=== PATIENT | male | born 1960 | race Caucasian/White ===

== ENCOUNTER → 2019-12-26 | Outpatient (CLI) | payer OTHER ==
[2019-12-26 13:59] LABS: Partial Thromboplastin Time 25.9 sec (22.0-30.0); Prothrombin Time 10.1 sec (9.0-12.0)
== END | disposition home or self-care (01) ==
LOC: LABPAT 12:42
PROVIDERS: ATTEND Orthopaedic Surgery
DX: Z01.818 Encounter for other preprocedural examination (principal); Z01.812 Encounter for preprocedural laboratory examination; M17.12 Unilateral primary osteoarthritis, left knee
CPT/HCPCS: 36415; 85610; 85730; 87070

== ENCOUNTER → 2020-05-10 | Outpatient (CLI) | payer OTHER ==
[2020-05-10 11:00] LABS: Appearance,Urine Clear (Clear); Bilirubin,Urine Negative (Negative); Blood,Urine Negative (Negative); Color,Urine Yellow; Glucose,Urine (UA) Negative (Negative); HCT 41.7 % (39.0-53.0); HGB 13.8 gm/dL (13.0-17.5); Ketones,Urine Negative (Negative); Leukocyte Esterase,Urine Negative (Negative); MCH 29.5 pg (25.0-35.0); MCHC 33.1 g/dL (31.0-37.0); MCV 89.3 fL (80.0-100.0); Mean Platelet Volume 7.4; Nitrite,Urine Negative (Negative); Platelet Count 224 k/uL (150-450); Protein,Urine Negative (Negative); RBC 4.67 m/uL (4.30-5.90); RDW 13.2 % (11.5-15.5); Specific Gravity,Urine 1.014 (1.001-1.035); Urobilinogen,Urine <2.0 mg/dL (<2.0); WBC 5.5 k/uL (3.8-10.6)
[2020-05-10 11:04] LABS: Partial Thromboplastin Time 25.6 sec (22.0-30.0)
[2020-05-10 11:30] LABS: ALT 52 U/L (4-49); AST 35 U/L (17-59); African American GFR (CKD) >90 (>60 ml/min/1.73 sqM); Alkaline Phosphatase 64 U/L (38-126); Anion Gap 11 mmol/L; Blood Urea Nitrogen 15 mg/dL (9-20); Calcium 9.7 mg/dL (8.4-10.2); Carbon Dioxide 22 mmol/L (22-30); Chloride 105 mmol/L (98-107); Glucose 119 mg/dL (74-99); Non-African American GFR(CKD) >90 (>60 ml/min/1.73 sqM); Potassium 4.3 mmol/L (3.5-5.1); Sodium 138 mmol/L (137-145); Total Bilirubin 0.5 mg/dL (0.2-1.3); Total Protein 7.6 g/dL (6.3-8.2)
== END | disposition home or self-care (01) ==
LOC: LABPAT 10:34
PROVIDERS: ATTEND Orthopaedic Surgery
DX: Z01.818 Encounter for other preprocedural examination (principal); Z01.812 Encounter for preprocedural laboratory examination
CPT/HCPCS: 36415; 80053; 81003; 85027; 85610; 85730; 87070

== ENCOUNTER 2020-05-17 06:28 | Day surgery (SDC) | payer OTHER ==
[2020-05-13 10:46] VITALS: BMI 32.5
[~2020-05-17 06:28] MED LIST: ACETAMINOPHEN TAB 500 MG TAB PO ONE; GABAPENTIN 300 MG CAP PO ONE; HYDROmorphone 0.5 MG/0.5 ML SYRINGE IVP PRN; LIDOCAINE 1% (10MG/ML) FOR IV START INTRADERMA PRN; MELOXICAM 7.5 MG TAB PO ONE; ONDANSETRON 4 MG/2 ML VIAL IVP ONE; TRANEXAMIC ACID 1,000 MG in SODIUM CHLORIDE 0.9% 100 ML IVPB ONE
[2020-05-17] MEDS ORDERED: ACETAMINOPHEN TAB 500 MG TAB ONE (07:22)
[2020-05-17] MEDS ORDERED: ONDANSETRON 4 MG/2 ML VIAL ONE (07:22)
[2020-05-17] MEDS ORDERED: MIDAZOLAM 2 MG/2 ML VIAL IVP ONE (08:04)
[2020-05-17] MEDS ORDERED: fentaNYL (PF) 50 MCG/ML 2 ML AMP IVP ONE (08:06)
[2020-05-17] MEDS ORDERED: DEXAMETHASONE SOD PHOS (MDV) 100 MG/10 ML VIAL IVP ONE (08:19)
[2020-05-17] MEDS: LACTATED RINGERS 1,000 ML IV SCH (08:19)
[2020-05-17] MEDS ORDERED: diazePAM 5 MG TAB PO PRN (08:57)
[2020-05-17] MEDS ORDERED: HYDROmorphone 1 MG/ML 1 ML SYRINGE IVP PRN (08:57)
[2020-05-17] MEDS ORDERED: NA PHOS,M-B/NA PHOS,DI-BA 133 ML ENEMA RECTAL PRN (08:57)
[2020-05-17] MEDS ORDERED: hydrOXYzine pamoate 25 MG CAP PO PRN (08:57)
[2020-05-17] MEDS ORDERED: HYDROmorphone 0.5 MG/0.5 ML SYRINGE IVP PRN ×2 (08:57)
[2020-05-17] MEDS ORDERED: HYDROcodone/APAP 5-325MG 1 EACH TAB PO PRN (08:57)
[2020-05-17] MEDS ORDERED: bisacodyL 10 MG SUPP RECTAL PRN (08:57)
[2020-05-17] MEDS ORDERED: NALOXONE 0.4 MG/ML 1 ML VIAL IV PRN (08:57)
[2020-05-17] MEDS ORDERED: MAGNESIUM HYDROXIDE 2,400 MG/10 ML CUP PO PRN (08:57)
[2020-05-17] MEDS ORDERED: ONDANSETRON 4 MG/2 ML VIAL IVP PRN (08:57)
[2020-05-17] MEDS ORDERED: ROPIVACAINE 0.2%-NS ON-Q PUMP 1,090 MG, EMPTY PAIN BALL 1 EACH MISCELLANE PRN (09:02)
--- NOTE | 2020-05-17 09:03 | P.ANPRN ---
Procedure Note - Anesthesia - Nerve Block Performed Left Adductor Canal Infusion Time Out Performed: Yes Date of Procedure: 05/17/20 Procedure Start Time: 08:04 Procedure Stop Time: 08:18 Location of Patient: PreOp Indication: Acute Post-Operative Pain, Requested by Surgeon Sedation Type: Sedate with meaningful contact maintained Preparation: Sterile Prep, Sterile Dressing Position: Supine Catheter: Indwelling Needle Types: Pajunk Needle Gauge: 18 Ultrasound used to visualize needle placement: Yes Ultrasound used to observe medication spread: Yes Injectate: 0.5% Ropivacaine (see comment for volume) (20 ml + decadron 4 mg) Blood Aspirated: No Pain Paresthesia on Injection Noted: No Resistance on Injection: Normal Image Stored and Saved: Yes
[2020-05-17] MEDS ORDERED: MIDAZOLAM 2 MG/2 ML VIAL ONE (09:30)
[2020-05-17] MEDS ORDERED: SODIUM CHLORIDE 0.9% 100 ML BAG ONE (09:30)
[2020-05-17] MEDS ORDERED: fentaNYL (PF) 50 MCG/ML 2 ML AMP ONE (09:30)
[2020-05-17] MEDS ORDERED: PROPOFOL 10 MG/ML 20 ML VIAL IV ONE (09:30)
[2020-05-17] MEDS ORDERED: TRANEXAMIC ACID 1,000 MG/10 ML VIAL ONE (09:30)
[2020-05-17] MEDS: ROPIVACAINE 246.25 MG, EPINEPHrine 0.5 MG, KETOROLAC 30 MG, cloNIDine HCL/PF 80 MCG, WA... MISCELLANE ONE ×10 (10:05→10:46)
--- NOTE | 2020-05-17 10:57 | P.OP ---
Date of Procedure: 05/17/20 Preoperative Diagnosis: Severe osteoarthritis left knee Postoperative Diagnosis: Severe osteoarthritis left knee Procedure(s) Performed: Left total knee arthroplasty utilizing Vision[employer] patient specific guides Implants: Bland and Nephew Cruciate Retaining Journey II CR Oxinium Femoral Component size 8, left Bland & Nephew Journey Nonporous Tibial Baseplate size 8, left Bland & Nephew Journey II CR, XLPE Articular Insert, 12 mm, size 7-8 Bland & Nephew Dianelys II Resurfacing Patellar Component, Oval, 35 mm All components were cemented using Palacose R bone cement. [employer] patient specific guides The articulation is Oxinium on polyethylene. Anesthesia: spinal Surgeon: Ezra Pozo Diamond Die Polisher #1: Charlotte Silva Estimated Blood Loss (ml): 50 Pathology: other (Bone and cartilage) Condition: stable Disposition: PACU Indications for Procedure: After failure of conservative treatment we discussed the surgical and nonsurgical treatment options at length. Patient wishes to proceed with a total knee arthroplasty. Complications specific to this procedure were discussed at length, including but not limited to infection, bleeding, stiffness, and nerve injury. Covid-19 was also discussed at length with the patient, and they are aware of the current policies and procedures. The patient was given the option of delaying surgery, but they elect to proceed knowing these risks. Patient is aware of all these complications and informed consent was obtained Operative Findings: The operative findings are consistent with severe osteoarthritis of the left knee Description of Procedure: Patient was seen in the preoperative area consent was reviewed and operative site was marked with a skin marker. An adductor canal pain catheter was placed by anesthesia in the preoperative area. Patient was then brought to the operating room and given preoperative antibiotics intravenously. A spinal anesthetic was administered by the anesthesia department. A tourniquet was placed on the upper thigh and the lower extremity was prepped and draped in usual sterile fashion. A gram of transexamic acid was given. A universal timeout was then performed which confirmed the patient's name, surgical site, ALLERGIES, and consent. The lower extremity was then exsanguinated and tourniquet was inflated to 250 mmHg. A standard and anterior midline approach to the knee was performed. The skin and subcutaneous tissue was dissected down to the patellar tendon. A medial parapatellar arthrotomy was then performed. The knee was then extended, the patellar was everted, and the knee was again flexed. Anterior horns of both menisci were excised, and a release was performed to the posterior medial aspect of the knee. On gross visual inspection, there was complete loss of articular cartilage in the medial and patellofemoral joint spaces. There was also significant cartilage damage in the lateral compartment. There were multiple periarticular osteophytes. The patient specific guide was placed on the distal femur, and pinned in place. Using the patient specific guide, the distal femoral cut was performed. The cutting block was then removed and the cut was checked for flatness. The appropriate 5-in-1 cutting block was then pinned in place through the holes that were drilled through the patient specific guide. The anterior condyles were cut without notching. The posterior and chamfer cuts were performed while protecting the collateral ligaments. The cutting block was then removed. Attention was then directed to the tibia. The remaining ACL was removed with a Ronguer, and the tibia was then gently subluxed forward with a large bent knee retractor. Any remaining menisci was excised. The posterior lateral corner was cauterized in order to cauterize the lateral geniculate artery. The patient specific guide for the tibia was then placed and was held in place with pins. Pinholes were then placed for rotation of the tibial component as well. Proximal tibia was then cut and sized. Next trials were then placed with the appropriate-sized insert. The knee was able to fully extend and flex to 130 and was stable throughout all range of motion. The knee was then extended, patella everted. Patella was then measured, and then using an osteotomy guide, the patella was cut at the appropriate level. The patella was then measured and drilled and the patella trial was then placed. The knee was then taken through range of motion with the patella trial and the patella tracked normally. The knee was then extended patella trial was then removed and the patella was everted. Knee was then flexed and lug holes were drilled through the femoral trial and the femoral trial was then removed. The tibial was then exposed, and the tibial broach guide was then pinned in place after it was set for the appropriate rotation to allow for the most coverage without overhang. The tibia was then reamed and broached. The cut surfaces of bone were then irrigated with pulsatile lavage. The posterior structures were injected with the ropivacaine solution. The knee was also irrigated with Irrisept solution. The components were then opened, the cement was mixed, and the components were then cemented in place. The cement was allowed to harden with the knee in full extension. While the cement was hardening, the remaining soft tissues were then injected with a ropivacaine solution, which consisted of 246.25 mg of ropivacaine, 0.5 mg of epinephrine, 30 mg of Toradol, 80 g of clonidine, and 48.45 mL of sterile water, for a total of 100 mL of fluid injected. After the cemented hardened. The tourniquet was released, and hemostasis was obtained. A second gram of transexamic acid was given. The knee was again irrigated. The knee was again taken through range of motion and found to be stable throughout all range of motion of 0-130, and the patella tracked normally. The fascia was then closed with #2 strata fix suture. The subcutaneous tissue was closed with 3-0 Vicryl and 3-0 strata fix. Dermabond glue was used for the skin and placed with the knee in flexion. The patient was placed in a sterile silver dressing. Patient was then transferred to recovery room in stable condition. The surgical services assistant GILMAR Judge was required due the complexity surgery and the need for a skilled operating room surgical technologist. She assisted in positioning, draping, retraction, and closure of the wound.
[2020-05-17] MEDS ORDERED: LACTATED RINGERS 1,000 ML IV ONE ×2 (11:13)
--- NOTE | 2020-05-17 12:10 | XR ---
EXAMINATION TYPE: XR knee limited LT DATE OF EXAM: 05/17/2020 COMPARISON: None HISTORY: Postop alignment and positioning TECHNIQUE: 2 view left knee FINDINGS: Tibial and femoral components of in place. No acute fractures are evident. Soft tissue post surgical changes are evident. IMPRESSION: 1. No acute fractures post knee replacement.
[2020-05-17] MEDS: HYDROcodone/APAP 5-325MG 1 EACH TAB PO PRN ×2 (16:33→23:00)
[2020-05-17 16:47] VITALS: RESP 18
[2020-05-17] MEDS: MELOXICAM 7.5 MG TAB PO SCH (17:26)
[2020-05-17] MEDS: SODIUM CHLORIDE 0.9% 1,000 ML IV SCH ×2 (19:23→22:58)
[2020-05-17] MEDS: ASPIRIN 325 MG TAB PO SCH (20:03)
[2020-05-17] MEDS ORDERED: SENNOSIDES-DOCUSATE SODIUM 1 EACH TAB PO SCH (21:00)
[2020-05-18] MEDS: LACTATED RINGERS 1,000 ML IV SCH (01:25)
[2020-05-18] MEDS: HYDROcodone/APAP 5-325MG 1 EACH TAB PO PRN ×2 (05:47→10:58)
[2020-05-18 07:30] VITALS: BP 122/65; PULSE 67; TEMP 97.5
--- NOTE | 2020-05-18 08:25 | P.PN ---
Progress Note - Text Progress Note Date: 05/18/20 Postoperative day # 1 status post left total knee arthroplasty, and left adductor canal catheter placed for postoperative analgesia, currently at ropivacaine 0.2% 8 mL per hour and continuous infusion, visual analogue scale is 1-2/10, patient using oral pain medication for breakthrough pain. Assessment and plan= Acute postoperative pain, adductor canal catheter for pain control, pain is well controlled we'll continue the same management. note = patient was seen at 7 AM in the morning today
[2020-05-18] MEDS: MELOXICAM 7.5 MG TAB PO SCH (08:43)
[2020-05-18] MEDS: ASPIRIN 325 MG TAB PO SCH (08:43)
[2020-05-18 09:27] LABS: Basophils % (A) 0 %; Eosinophils % (A) 0 %; HCT 35.7 % (39.0-53.0); HGB 12.2 gm/dL (13.0-17.5); Lymphocytes # (A) 1.5 k/uL (1.0-4.8); Lymphocytes % (A) 11 %; MCH 30.3 pg (25.0-35.0); MCV 89.1 fL (80.0-100.0); Mean Platelet Volume 7.4; Monocytes # (A) 0.6 k/uL (0-1.0); Monocytes % (A) 4 %; Neutrophils # (A) 11.1 k/uL (1.3-7.7); Neutrophils % (A) 83 %; Platelet Count 214 k/uL (150-450); RBC 4.01 m/uL (4.30-5.90); RDW 13.2 % (11.5-15.5); WBC 13.3 k/uL (3.8-10.6)
--- NOTE | 2020-05-18 10:12 | P.DS ---
Providers Expected date of discharge: 05/18/20 Attending physician: Ezra Pozo Consults: 05/17/20 08:57 Consult Physician Routine Consulting Provider: Jassi Disla Consult Reason/Comments: medical management Do you want consulting provider notified?: Yes Primary care physician: Ezra Nelson - Discharge Diagnosis(es) (1) Osteoarthritis of left knee Current Visit: Yes Status: Acute (2) Status post total left knee replacement Current Visit: Yes Status: Acute Hospital Course: This is a 59-year-old male with known history of degenerative arthritis of the left knee. The patient presents for evaluation. After discussion and consideration patient elects to proceed with total knee arthroplasty. The patient is seen preoperatively by Dr. Pozo and medically cleared for surgery by their primary care physician. Patient is admitted to [facility] on 05/17/2020 for total knee arthroplasty. The procedures performed without complication or sequelae. The patient is doing well postoperatively. Labs and vital signs are stable on day of discharge. On day of discharge patient's knee incision is healing well. There is minimal erythema. There is no drainage noted at this time. There is minimal soft tissue swelling to the knee. Patient has full foot and ankle motion without difficulty or pain. Calf is soft and nontender to palpation. Neurovascular status to the left lower extremity is intact. Patient is discharged home in good condition. Opioid start talking form is reviewed and signed at patient bedside. Please see med rec for accurate list of home medications. Plan - Discharge Summary Discharge Rx Participant: Yes New Discharge Prescriptions: New Aspirin 325 mg PO BID #60 tab HYDROcodone/APAP 5-325MG [[place] 5-325] 1 - 2 tab PO Q6HR PRN #48 tab PRN Reason: Pain Sennosides [Senokot] 2 tab PO DAILY PRN #60 tablet PRN Reason: Constipation Continue Tamsulosin [Flomax] 0.4 mg PO DAILY Tadalafil [Cialis] 20 mg PO DAILY Discharge Medication List Tadalafil [Cialis] 20 mg PO DAILY 05/13/20 [History] Tamsulosin [Flomax] 0.4 mg PO DAILY 05/13/20 [History] Aspirin 325 mg PO BID #60 tab 05/18/20 [Rx] HYDROcodone/APAP 5-325MG [[place] 5-325] 1 - 2 tab PO Q6HR PRN #48 tab 05/18/20 [Rx] Sennosides [Senokot] 2 tab PO DAILY PRN #60 tablet 05/18/20 [Rx] Follow up Appointment(s)/Referral(s): Ezra Pozo DO [Doctor of Osteopathic Medicine] - 05/28/20 9:00 am Ezra Nelson DO [Primary Care Provider] - 05/21/20 3:20 pm Activity/Diet/Wound Care/Special Instructions: Weightbearing as tolerated with a walker. CPM 5-6h daily. Leave dressing intact. May be removed by home care nurse or by patient in 10 days. May shower with dressing on. Recommend use of compression stockings daily until follow up to help prevent swelling and blood clots. May remove at night before sleeping. Please follow up with [facility] and call with any questions or concerns, . Discharge Disposition: HOME WITH HOME HEALTH SERVICES
--- NOTE | 2020-05-25 21:42 | P.CONS ---
History of Present Illness - Reason for Consult Consult date: 05/18/20 medical management - Chief Complaint Left knee arthroplasty - History of Present Illness Patient is a 59-year-old male with a long history of BPH, obstructive sleep apnea not on CPAP and osteoarthritis was admitted to the hospital for elective left total knee arthroplasty. Patient tolerated the procedure very well. Currently denies any complaints of chest pain or shortness of breath. No nausea vomiting or abdominal pain or diarrhea. Postoperatively blood pressure is elevated with SBP in the 150s. Laboratory data showed WBC 13.3, hemoglobin 12.2 and neutrophils absolute 11.1 and platelets 214 Blood pressures currently controlled. Review of Systems Constitutional: Patient denies any fever or chills . No generalized weakness or weight loss. Abdomen: Patient denied nausea vomiting and diarrhea and abdominal pain. Cardiovascular: Patient denies any chest pain or short of breath no palpitations. Respiratory: patient denied any cough is from production. No shortness of breath Neurologic: Patient denied any numbness or tingling headache. Musculoskeletal: Patient denies any complaints of joint swelling or deformity. Skin: Negative Psychiatric: Negative Endocrine: No heat or cold intolerance. No recent weight gain. Genitourinary: No dysuria or hematuria. All other 14 point ROS negative except the above Past Medical History Past Medical History: Prostate Disorder, Sleep Apnea/CPAP/BIPAP Additional Past Medical History / Comment(s): NO CURRENT TX FOR SLEEP APNEA. History of Any Multi-Drug Resistant Organisms: None Reported Past Surgical History: Hernia Repair, Orthopedic Surgery Additional Past Surgical History / Comment(s): left knee meniscus repair, PLASTIC SURGERY ON FACE from baseball injury, amari cataract Past Anesthesia/Blood Transfusion Reactions: Previous Problems w/ Anesthesia Additional Past Anesthesia/Blood Transfusion Reaction / Comm: claustrophobia (when coming out of anesthesia after cataract surgery) Past Psychological History: No Psychological Hx Reported Smoking Status: Never smoker Past Alcohol Use History: Occasional Past Drug Use History: None Reported - Past Family History Sister(s) Family Medical History: Cancer Medications and Allergies Home Medications Medication Instructions Recorded Confirmed Type Tadalafil [Cialis] 20 mg PO DAILY 05/13/20 05/13/20 History Tamsulosin [Flomax] 0.4 mg PO DAILY 05/13/20 05/13/20 History Aspirin 325 mg PO BID #60 tab 05/18/20 Rx HYDROcodone/APAP 5-325MG [[place] 1 - 2 tab PO Q6HR PRN #48 tab 05/18/20 Rx 5-325] Sennosides [Senokot] 2 tab PO DAILY PRN #60 tablet 05/18/20 Rx Allergies Allergy/AdvReac Type Severity Reaction Status Date / Time No Known Allergies Allergy Verified 05/13/20 10:40 Physical Exam Vitals: Vital Signs Temp Pulse Pulse Resp BP BP Pulse Ox 05/18/20 07:00 97.5 F L 67 18 122/65 95 05/18/20 01:39 97.8 F 61 18 142/87 95 05/17/20 19:18 97.6 F 67 18 133/79 95 05/17/20 16:46 97.5 F L 69 18 158/84 98 05/17/20 15:54 68 16 126/79 98 05/17/20 15:05 68 16 145/80 97 05/17/20 14:10 65 18 121/73 98 05/17/20 13:45 58 L 16 121/72 96 05/17/20 13:30 60 16 132/72 100 05/17/20 13:15 60 16 120/69 100 05/17/20 13:00 60 16 125/71 95 05/17/20 12:45 58 L 16 129/69 95 05/17/20 12:30 59 L 16 122/70 96 05/17/20 12:20 58 L 16 119/68 94 L 05/17/20 12:05 60 16 118/69 94 L 05/17/20 11:50 70 16 131/76 98 05/17/20 11:39 97.2 F L 76 16 150/76 96 Intake and Output 05/17/20 05/18/20 05/18/20 22:59 06:59 14:59 Output Total 800 Balance -800 Output: Urine 800 Other: Voiding Method Toilet Toilet # Voids 1 Weight 121.2 kg PHYSICAL EXAMINATION: Patient is lying in the bed comfortably, no acute distress, awake alert and oriented.. HEENT: Normocephalic. Neck is supple. Pupils reactive. Nostrils clear. Oral cavity is moist. Ears reveal no drainage. Neck reveals no JVD, carotid bruits, or thyromegaly. CHEST EXAMINATION: Trachea is central. Symmetrical expansion. Lung claros clear to auscultation and percussion. CARDIAC: Normal S1, S2 with no gallops. No murmurs ABDOMEN: Soft. Bowel sounds normal. No organomegaly. No abdominal bruits. Extremities: reveal no edema. No clubbing or cyanosis Neurologically awake, alert, oriented x3 with well-coordinated movements. No focal deficits noted Skin: No rash or skin lesions. Psychiatric: Coperative. Nonsuicidal Musculoskeletal: No joint swelling or deformity. Normal range of motion.Left knee surgical site is intact. Results CBC & Chem 7: 05/18/20 08:17 Labs: Abnormal Lab Results - Last 24 Hours (Table) 05/18/20 Range/Units 08:17 WBC 13.3 H (3.8-10.6) k/uL RBC 4.01 L (4.30-5.90) m/uL Hgb 12.2 L (13.0-17.5) gm/dL Hct 35.7 L (39.0-53.0) % Neutrophils # 11.1 H (1.3-7.7) k/uL Assessment and Plan Assessment: Status post left total knee arthroplasty. Postoperative day 1 Mild leukocytosis likely postoperative inflammation. Osteoarthritis Obstructive sleep apnea not on CPAP at home BPH DVT prophylaxis Plan: Patient be continued on pain management with nerve block as per anesthesia. Continue with bowel regimen and DVT prophylaxis. Patient was encouraged with ambulation and incentive spirometry. We will continue to monitor blood pressures and add blood pressure medications as needed. Further recommendations based on clinical course. Thank you for your consult.
== END 2020-05-18 14:55 | disposition home health service (06) ==
LOC: OR 06:28 → 4SSUR 16:14 → OR 05-18 14:55
PROVIDERS: ATTEND Orthopaedic Surgery
DX: M17.0 Bilateral primary osteoarthritis of knee (principal); M25.462 Effusion, left knee; H91.90 Unspecified hearing loss, unspecified ear; G47.33 Obstructive sleep apnea (adult) (pediatric); E66.9 Obesity, unspecified; E29.1 Testicular hypofunction; Z79.82 Long term (current) use of aspirin; Z68.32 Body mass index [BMI] 32.0-32.9, adult; Z88.5 Allergy status to narcotic agent; Z87.19 Personal history of other diseases of the digestive system; Z82.49 Family history of ischemic heart disease and other diseases of the circulatory system; Z79.899 Other long term (current) drug therapy
CPT/HCPCS: 97110; 97161; 64448; 76942; 85025; 88300; 73560; 27447; C1713; C1776; J2250; J0171; J0690 ×2; J2405; J3010; J1885; J1100; J2795 ×2; J0735; J1170

== ENCOUNTER → 2020-07-19 | Outpatient (CLI) | payer OTHER ==
[2020-07-19 13:35] LABS: Appearance,Urine Clear (Clear); Bilirubin,Urine Negative (Negative); Blood,Urine Negative (Negative); Color,Urine Light Yellow; Glucose,Urine (UA) Negative (Negative); Ketones,Urine Negative (Negative); Leukocyte Esterase,Urine Negative (Negative); Nitrite,Urine Negative (Negative); PH, Urine 6.5 (5.0-8.0); Protein,Urine Negative (Negative); Specific Gravity,Urine 1.008 (1.001-1.035); Urobilinogen,Urine <2.0 mg/dL (<2.0)
== END | disposition home or self-care (01) ==
LOC: LABPAT 11:18
PROVIDERS: ATTEND Orthopaedic Surgery
DX: Z01.818 Encounter for other preprocedural examination (principal); Z01.812 Encounter for preprocedural laboratory examination
CPT/HCPCS: 81003

== ENCOUNTER 2020-07-27 11:13 | Day surgery (SDC) | payer OTHER ==
[2020-07-22 14:31] VITALS: BMI 32.0
[~2020-07-27 11:13] MED LIST changes: +DEXAMETHASONE SOD PHOSPHATE 10 MG/ML 1 ML VIAL IV ONE; -LIDOCAINE 1% (10MG/ML) FOR IV START INTRADERMA PRN; +MIDAZOLAM 2 MG/2 ML VIAL IV PRN; +ROPIVACAINE 246.25 MG, EPINEPHrine 0.5 MG, KETOROLAC 30 MG, cloNIDine HCL/PF 80 MCG, WA... MISCELLANE ONE; +SCOPOLAMINE 1.5MG/72HR PATCH TRANSDERM ONE
[2020-07-27] MEDS: LACTATED RINGERS 1,000 ML IV SCH (11:52)
[2020-07-27] MEDS ORDERED: MIDAZOLAM 2 MG/2 ML VIAL IVP ONE (12:19)
[2020-07-27] MEDS ORDERED: fentaNYL (PF) 50 MCG/ML 2 ML AMP IVP ONE (12:19)
[2020-07-27] MEDS ORDERED: ROPIVACAINE 0.2%-NS ON-Q PUMP 1,090 MG, EMPTY PAIN BALL 1 EACH MISCELLANE PRN (13:13)
--- NOTE | 2020-07-27 13:14 | P.ANPRN ---
Procedure Note - Anesthesia - Nerve Block Performed Right Adductor Canal Infusion Time Out Performed: Yes (1218) Date of Procedure: 07/27/20 Procedure Start Time: 12:19 Procedure Stop Time: 12:26 Location of Patient: PreOp Indication: Acute Post-Operative Pain, Requested by Surgeon Specifically requested for management of pain by DrSaji: Ezra Pozo Sedation Type: Sedate with meaningful contact maintained Preparation: Sterile Prep Position: Supine Catheter Depth at Skin (cm): 9 Catheter: Indwelling Needle Types: Pajunk Needle Gauge: 21 Ultrasound used to visualize needle placement: Yes Ultrasound used to observe medication spread: Yes Injectate: 0.5% Ropivacaine (see comment for volume) (20CC) Blood Aspirated: No Pain Paresthesia on Injection Noted: No Resistance on Injection: Normal Image Stored and Saved: Yes Events: Uneventful and Well Tolerated
[2020-07-27] MEDS ORDERED: MIDAZOLAM 2 MG/2 ML VIAL ONE (13:34)
[2020-07-27] MEDS ORDERED: KETAMINE 10 MG/ML 20 ML VIAL ONE (13:34)
[2020-07-27] MEDS ORDERED: SODIUM CHLORIDE 0.9% 100 ML BAG ONE (13:34)
[2020-07-27] MEDS ORDERED: TRANEXAMIC ACID 1,000 MG/10 ML VIAL ONE (13:34)
[2020-07-27] MEDS ORDERED: PROPOFOL 10 MG/ML 20 ML VIAL IV ONE (13:34)
[2020-07-27] MEDS ORDERED: fentaNYL (PF) 50 MCG/ML 2 ML AMP ONE (13:34)
[2020-07-27] MEDS ORDERED: LACTATED RINGERS 1,000 ML IV ONE (14:40)
--- NOTE | 2020-07-27 14:57 | P.OP ---
Date of Procedure: 07/27/20 Preoperative Diagnosis: Severe osteoarthritis right knee Postoperative Diagnosis: Severe osteoarthritis right knee Procedure(s) Performed: Right total knee arthroplasty utilizing [employer] patient specific guides Implants: Bland and Nephew Cruciate Retaining Journey II CR Oxinium Femoral Component size 9, right Bland & Nephew Journey Nonporous Tibial Baseplate size 8, right Bland & Nephew Journey II CR, XLPE Articular Insert, 9 mm, size 7-8 Bland & Nephew Dianelys II Resurfacing Patellar Component, Oval, 38 mm All components were cemented using Palacose R bone cement x 2. The articulation is Oxinium on polyethylene. [employer] patient specific guides The articulation is Oxinium on polyethylene. Anesthesia: spinal Surgeon: Ezra Pozo Humane Agent #1: Charlotte Silva Estimated Blood Loss (ml): 50 Pathology: other (Bone and cartilage) Condition: stable Disposition: PACU Indications for Procedure: After failure of conservative treatment we discussed the surgical and nonsurgical treatment options at length. Patient wishes to proceed with a total knee arthroplasty. Complications specific to this procedure were discussed at length, including but not limited to infection, bleeding, stiffness, and nerve injury. Covid-19 was also discussed at length with the patient, and they are aware of the current policies and procedures. The patient was given the option of delaying surgery, but they elect to proceed knowing these risks. Patient is aware of all these complications and informed consent was obtained Operative Findings: The operative findings are consistent with severe osteoarthritis the right knee Description of Procedure: Patient was seen in the preoperative area consent was reviewed and operative site was marked with a skin marker. An adductor canal pain catheter was placed by anesthesia in the preoperative area. Patient was then brought to the operating room and given preoperative antibiotics intravenously. A spinal anest hetic was administered by the anesthesia department. A tourniquet was placed on the upper thigh and the lower extremity was prepped and draped in usual sterile fashion. A gram of transexamic acid was given. A universal timeout was then performed which confirmed the patient's name, surgical site, ALLERGIES, and consent. The lower extremity was then exsanguinated and tourniquet was inflated to 250 mmHg. A standard and anterior midline approach to the knee was performed. The skin and subcutaneous tissue was dissected down to the patellar tendon. A medial parapatellar arthrotomy was then performed. The knee was then extended, the patellar was everted, and the knee was again flexed. Anterior horns of both menisci were excised, and a release was performed to the posterior medial aspect of the knee. On gross visual inspection, there was complete loss of articular cartilage in the medial and patellofemoral joint spaces. There was also significant cartilage damage in the lateral compartment. There were multiple periarticular osteophytes. The patient specific guide was placed on the distal femur, and pinned in place. Using the patient specific guide, the distal femoral cut was performed. The cutting block was then removed and the cut was checked for flatness. The appropriate 5-in-1 cutting block was then pinned in place through the holes that were drilled through the patient specific guide. The anterior condyles were cut without notching. The posterior and chamfer cuts were performed while protecting the collateral ligaments. The cutting block was then removed. Attention was then directed to the tibia. The remaining ACL was removed with a Ronguer, and the tibia was then gently subluxed forward with a large bent knee retractor. Any remaining menisci was excised. The posterior lateral corner was cauterized in order to cauterize the lateral geniculate artery. The patient specific guide for the tibia was then placed and was held in place with pins. Pinholes were then placed for rotation of the tibial component as well. Proximal tibia was then cut and sized. Next trials were then placed with the appropriate-sized insert. The knee was able to fully extend and flex to 130 and was stable throughout all range of motion. The knee was then extended, patella everted. Patella was then measured, and then using an osteotomy guide, the patella was cut at the appropriate level. The patella was then measured and drilled and the patella trial was then placed. The knee was then taken through range of motion with the patella trial and the patella tracked normally. The knee was then extended patella trial was then removed and the patella was everted. Knee was then flexed and lug holes were drilled through the femoral trial and the femoral trial was then removed. The tibial was then exposed, and the tibial broach guide was then pinned in place after it was set for the appropriate rotation to allow for the most coverage without overhang. The tibia was then reamed and broached. The cut surfaces of bone were then irrigated with pulsatile lavage. The posterior structures were injected with the ropivacaine solution. The knee was also irrigated with Irrisept solution. The components were then opened, the cement was mixed, and the components were then cemented in place. The cement was allowed to harden with the knee in full extension. While the cement was hardening, the remaining soft tissues were then injected with a ropivacaine solution, which consisted of 246.25 mg of ropivacaine, 0.5 mg of epinephrine, 30 mg of Toradol, 80 g of clonidine, and 48.45 mL of sterile water, for a total of 100 mL of fluid injected. After the cemented hardened. The tourniquet was released, and hemostasis was obtained. A second gram of transexamic acid was given. The knee was again irrigated. The knee was again taken through range of motion and found to be stable throughout all range of motion of 0-130, and the patella tracked normally. The fascia was then closed with #2 strata fix suture. The subcutaneous tissue was closed with 3-0 Vicryl and 3-0 strata fix. Dermabond glue was used for the skin and placed with the knee in flexion. The patient was placed in a sterile silver dressing. Patient was then transferred to recovery room in stable condition. The fundraising assistant GILMAR Judge was required due the complexity surgery and the need for a skilled surgical garment assembly supervisor. She assisted in positioning, draping, retraction, and closure of the wound.
[2020-07-27] MEDS ORDERED: NA PHOS,M-B/NA PHOS,DI-BA 133 ML ENEMA RECTAL PRN (15:34)
[2020-07-27] MEDS ORDERED: HYDROcodone/APAP 5-325MG 1 EACH TAB PO PRN (15:34)
[2020-07-27] MEDS ORDERED: ONDANSETRON 4 MG/2 ML VIAL IVP PRN (15:34)
[2020-07-27] MEDS ORDERED: hydrOXYzine pamoate 25 MG CAP PO PRN (15:34)
[2020-07-27] MEDS ORDERED: NALOXONE 0.4 MG/ML 1 ML VIAL IV PRN (15:34)
[2020-07-27] MEDS ORDERED: HYDROmorphone 1 MG/ML 1 ML SYRINGE IVP PRN (15:34)
[2020-07-27] MEDS ORDERED: HYDROmorphone 0.5 MG/0.5 ML SYRINGE IVP PRN ×2 (15:34)
[2020-07-27] MEDS ORDERED: MAGNESIUM HYDROXIDE 2,400 MG/10 ML CUP PO PRN (15:34)
[2020-07-27] MEDS ORDERED: bisacodyL 10 MG SUPP RECTAL PRN (15:34)
[2020-07-27] MEDS ORDERED: diazePAM 5 MG TAB PO PRN (15:34)
--- NOTE | 2020-07-27 16:19 | XR ---
EXAMINATION TYPE: XR knee limited RT DATE OF EXAM: 07/27/2020 COMPARISON: None HISTORY: Post evaluation TECHNIQUE: Two-view right knee FINDINGS: Tibial and femoral components of in place. Soft tissue postsurgical changes are present. No acute fractures or dislocations are evident. IMPRESSION: 1. No acute fracture post knee replacement.
[2020-07-27] MEDS: SODIUM CHLORIDE 0.9% 1,000 ML IV SCH (16:55)
[2020-07-27] MEDS: HYDROcodone/APAP 5-325MG 1 EACH TAB PO PRN ×2 (16:58→22:19)
[2020-07-27] MEDS ORDERED: SENNOSIDES-DOCUSATE SODIUM 1 EACH TAB PO SCH (21:00)
[2020-07-27] MEDS: ASPIRIN 325 MG TAB PO SCH (22:18)
[2020-07-28] MEDS: LACTATED RINGERS 1,000 ML IV SCH (05:58)
[2020-07-28] MEDS: HYDROcodone/APAP 5-325MG 1 EACH TAB PO PRN ×2 (05:59→11:54)
[2020-07-28 06:00] LABS: Basophils % (A) 0 %; Eosinophils % (A) 0 %; HGB 11.3 gm/dL (13.0-17.5); Lymphocytes # (A) 1.3 k/uL (1.0-4.8); Lymphocytes % (A) 9 %; MCH 28.8 pg (25.0-35.0); MCHC 33.2 g/dL (31.0-37.0); MCV 86.6 fL (80.0-100.0); Mean Platelet Volume 6.8; Monocytes # (A) 0.6 k/uL (0-1.0); Monocytes % (A) 4 %; Neutrophils # (A) 12.2 k/uL (1.3-7.7); Neutrophils % (A) 86 %; Platelet Count 242 k/uL (150-450); RBC 3.93 m/uL (4.30-5.90); RDW 13.8 % (11.5-15.5); WBC 14.2 k/uL (3.8-10.6)
--- NOTE | 2020-07-28 07:07 | P.PN ---
Progress Note - Text Progress Note Date: 07/28/20 (650) Anesthesiology Postop day 1 status post total knee arthroplasty with adductor canal catheter. Patient doing well. VAS 2 out of 10. Gross strength intact in lower extremity. Afebrile. Denies alterations in sensorium. Catheter site intact. Heart regular rate Lungs nonlabored Abdomen nondistended Assessment: Postop day 1 status post total knee arthroplasty with adductor canal catheter Plan: All questions answered. Maintain catheter 2 more days with patient removal at home. Instructions were given at discharge.
[2020-07-28] MEDS: SODIUM CHLORIDE 0.9% 1,000 ML IV SCH (07:18)
[2020-07-28 07:38] VITALS: BP 131/73; PULSE 69; RESP 18; TEMP 98
[2020-07-28] MEDS: ASPIRIN 325 MG TAB PO SCH (08:08)
--- NOTE | 2020-07-28 08:48 | P.DS ---
Providers Expected date of discharge: 07/28/20 Attending physician: Ezra Pozo Consults: 07/27/20 15:34 Consult Physician Routine Consulting Provider: Jassi Disla Consult Reason/Comments: medical management Do you want consulting provider notified?: Yes Primary care physician: Ezra Nelson - Discharge Diagnosis(es) (1) Osteoarthritis of right knee Current Visit: Yes Status: Acute (2) S/P total knee arthroplasty Current Visit: Yes Status: Acute Hospital Course: This is a 59-year-old male with known history of degenerative arthritis of the right knee. The patient presents for evaluation. After discussion and consideration patient elects to proceed with total knee arthroplasty. The patient is seen preoperatively by Dr. Pozo and medically cleared for surgery by their primary care physician. Patient is admitted to [facility] on 07/27/2020 for total knee arthroplasty. The procedures performed without complication or sequelae. The patient is doing well postoperatively. Labs and vital signs are stable on day of discharge. On day of discharge patient's knee incision is healing well. There is minimal erythema. There is no drainage noted at this time. There is minimal soft tissue swelling to the knee. Patient has full foot and ankle motion without difficulty or pain. Calf is soft and nontender to palpation. Neurovascular status to the right lower extremity is intact. Patient is discharged home in good condition. Opioid start talking form is reviewed and signed at patient bedside. Please see med rec for accurate list of home medications. Plan - Discharge Summary Discharge Rx Participant: Yes New Discharge Prescriptions: New Aspirin 325 mg PO BID #60 tab HYDROcodone/APAP 5-325MG [[place] 5-325] 1 - 2 tab PO Q6HR PRN #48 tab PRN Reason: Pain Sennosides [Senokot] 2 tab PO DAILY PRN #60 tablet PRN Reason: Constipation No Action Tamsulosin [Flomax] 0.4 mg PO DAILY Tadalafil [Cialis] 20 mg PO DAILY PRN PRN Reason: sexual dysfunction Ibuprofen [Motrin] 800 mg PO TID Discharge Medication List Tadalafil [Cialis] 20 mg PO DAILY PRN 05/13/20 [History] Tamsulosin [Flomax] 0.4 mg PO DAILY 05/13/20 [History] Ibuprofen [Motrin] 800 mg PO TID 07/22/20 [History] Aspirin 325 mg PO BID #60 tab 07/28/20 [Rx] HYDROcodone/APAP 5-325MG [[place] 5-325] 1 - 2 tab PO Q6HR PRN #48 tab 07/28/20 [Rx] Sennosides [Senokot] 2 tab PO DAILY PRN #60 tablet 07/28/20 [Rx] Follow up Appointment(s)/Referral(s): Ezra Pozo DO [Doctor of Osteopathic Medicine] - 2 Weeks Ambulatory/Diagnostic Orders: Continuous Passive Motion (CPM) Machine [DME.AMB1] Time Frame: 3 Weeks, Location: None Selected Activity/Diet/Wound Care/Special Instructions: Weightbearing as tolerated with a walker. CPM 5-6h daily. Leave dressing intact. May be removed by home care nurse or by patient in 10 days. May shower with dressing on. Recommend use of compression stockings daily until follow up to help prevent swelling and blood clots. May remove at night before sleeping. Please take aspirin 325mg twice daily for 30 days to prevent blood clots. Please follow up with [facility] and call with any questions or concerns, . Discharge Disposition: HOME WITH HOME HEALTH SERVICES
[2020-07-28] MEDS ORDERED: TAMSULOSIN 0.4 MG CAP.ER.24H PO SCH (09:00)
[2020-07-28] MEDS ORDERED: MELOXICAM 7.5 MG TAB PO SCH (09:00)
--- NOTE | 2020-07-28 13:24 | P.CONS ---
History of Present Illness - Reason for Consult Medical clearance no leukocytosis - History of Present Illness Patient is a pleasant 59-year-old male came in for elective right knee arthroplasty patient had the surgery yesterday clinically doing well doesn't have full catheter patient has a catheter for pain into the right thigh. Patient is feeling better pain-free passing gas no fever chills nausea vomiting patient does have leukocytosis but no evidence of sepsis, pneumonia or UTI. Patient is clinically doing well can be discharged from medical perspective Review of Systems REVIEW OF SYSTEMS: CONSTITUTIONAL: No fever, no malaise, no fatigue. HEENT: No recent visual problems or hearing problems. Denied any sore throat. CARDIOVASCULAR: No chest pain, orthopnea, PND, no palpitations, no syncope. PULMONARY: No shortness of breath, no cough, no hemoptysis. GASTROINTESTINAL: No diarrhea, no nausea, no vomiting, no abdominal pain. NEUROLOGICAL: No headaches, no weakness, no numbness. HEMATOLOGICAL: Denies any bleeding or petechiae. GENITOURINARY: Denies any burning micturition, frequency, or urgency. MUSCULOSKELETAL/RHEUMATOLOGICAL: Denies any joint pain, swelling, or any muscle pain. ENDOCRINE: Denies any polyuria or polydipsia. The rest of the 14-point review of systems is negative. Past Medical History Past Medical History: Hypertension, Osteoarthritis (OA), Sleep Apnea/CPAP/BIPAP Additional Past Medical History / Comment(s): NO CURRENT TX FOR SLEEP APNEA. History of Any Multi-Drug Resistant Organisms: None Reported Past Surgical History: Hernia Repair, Joint Replacement Additional Past Surgical History / Comment(s): total left knee, PLASTIC SURGERY ON FACE from baseball injury, left cataract Past Anesthesia/Blood Transfusion Reactions: Previous Problems w/ Anesthesia Additional Past Anesthesia/Blood Transfusion Reaction / Comm: claustrophobia (when coming out of anesthesia after cataract surgery) Past Psychological History: No Psychological Hx Reported Smoking Status: Never smoker Past Alcohol Use History: Occasional Past Drug Use History: None Reported - Past Family History Sister(s) Family Medical History: Cancer Medications and Allergies Home Medications Medication Instructions Recorded Confirmed Type Tadalafil [Cialis] 20 mg PO DAILY PRN 05/13/20 07/22/20 History Tamsulosin [Flomax] 0.4 mg PO DAILY 05/13/20 07/22/20 History Ibuprofen [Motrin] 800 mg PO TID 07/22/20 07/22/20 History Aspirin 325 mg PO BID #60 tab 07/28/20 Rx HYDROcodone/APAP 5-325MG [[place] 1 - 2 tab PO Q6HR PRN #48 tab 07/28/20 Rx 5-325] Sennosides [Senokot] 2 tab PO DAILY PRN #60 tablet 07/28/20 Rx Allergies Allergy/AdvReac Type Severity Reaction Status Date / Time No Known Allergies Allergy Verified 07/22/20 14:24 Physical Exam Vitals: Vital Signs Temp Pulse Pulse Pulse Resp BP Pulse Ox 07/28/20 07:00 98.0 F 69 18 131/73 96 07/28/20 02:50 97.4 F L 60 119/65 95 07/28/20 00:00 15 07/27/20 23:00 98.1 F 73 15 117/75 98 07/27/20 19:40 75 128/76 97 07/27/20 19:25 75 101/68 98 07/27/20 19:10 73 121/76 97 07/27/20 18:55 65 126/74 97 07/27/20 18:40 63 124/77 94 L 07/27/20 18:25 66 123/78 96 07/27/20 18:10 69 119/78 97 07/27/20 17:50 72 135/82 96 07/27/20 17:20 66 16 128/81 96 07/27/20 17:10 74 127/75 97 07/27/20 16:50 74 126/84 96 07/27/20 16:34 97.4 F L 68 20 137/78 96 07/27/20 16:15 67 16 125/61 07/27/20 16:00 67 16 125/61 99 07/27/20 15:47 75 16 140/63 97 07/27/20 15:32 97.3 F L 94 16 145/79 96 Intake and Output 07/27/20 07/28/20 07/28/20 22:59 06:59 14:59 Intake Total 988 1230 246 Output Total 50 450 Balance 938 780 246 Intake: IV 308 20 10 Invasive Line 2 8 20 10 Intake, IV Titration 280 610 Amount Sodium Chloride 0.9% 1, 280 560 000 ml @ 70 mls/hr IV . [id number] [facility] Rx#:[id number] ceFAZolin 2 gm In Sodium 50 Chloride 0.9% 50 ml @ 100 mls/hr IVPB Q8H [facility] Rx#: [id number] Oral 400 600 236 Output: Urine 450 Estimated Blood Loss 50 Other: # Voids 1 2 Weight 120.9 kg PHYSICAL EXAMINATION: GENERAL: The patient is alert and oriented x3, not in any acute distress. Well developed, well nourished. HEENT: Pupils are round and equally reacting to light. EOMI. No scleral icterus. No conjunctival pallor. Normocephalic, atraumatic. No pharyngeal erythema. No thyromegaly. CARDIOVASCULAR: S1 and S2 present. No murmurs, rubs, or gallops. PULMONARY: Chest is clear to auscultation, no wheezing or crackles. ABDOMEN: Soft, nontender, nondistended, normoactive bowel sounds. No palpable organomegaly. MUSCULOSKELETAL: No joint swelling or deformity. Surgical packing to the right knee EXTREMITIES: No cyanosis, clubbing, or pedal edema. NEUROLOGICAL: Gross neurological examination did not reveal any focal deficits. SKIN: No rashes. Results CBC & Chem 7: 07/28/20 05:26 Labs: Abnormal Lab Results - Last 24 Hours (Table) 07/28/20 Range/Units 05:26 WBC 14.2 H (3.8-10.6) k/uL RBC 3.93 L (4.30-5.90) m/uL Hgb 11.3 L (13.0-17.5) gm/dL Hct 34.0 L (39.0-53.0) % Neutrophils # 12.2 H (1.3-7.7) k/uL Assessment and Plan Plan: -Leukocytosis: Reactive secondary to surgery will not require any further workup for antibiotics at this time -Osteoarthritis status post arthroplasty of right knee now and had a recent up last night patient is on DVT prophylaxis aspirin twice a day which is appropriate and can be continued -Sleep apnea his a CPAP machine at home. Patient can be discharged from medical perspective
== END 2020-07-28 13:14 | disposition home health service (06) ==
LOC: OR 11:13 → 4SSUR 16:02 → OR 07-28 13:14
PROVIDERS: ATTEND Orthopaedic Surgery
DX: M17.11 Unilateral primary osteoarthritis, right knee (principal); I10 Essential (primary) hypertension; E29.1 Testicular hypofunction; G47.33 Obstructive sleep apnea (adult) (pediatric); N40.1 Benign prostatic hyperplasia with lower urinary tract symptoms; F40.240 Claustrophobia; E66.9 Obesity, unspecified; Z96.652 Presence of left artificial knee joint; Z98.41 Cataract extraction status, right eye; Z98.42 Cataract extraction status, left eye; Z98.890 Other specified postprocedural states; Z97.3 Presence of spectacles and contact lenses; Z79.1 Long term (current) use of non-steroidal anti-inflammatories (NSAID); Z79.82 Long term (current) use of aspirin; Z79.899 Other long term (current) drug therapy; Z68.32 Body mass index [BMI] 32.0-32.9, adult; Z82.49 Family history of ischemic heart disease and other diseases of the circulatory system
CPT/HCPCS: 97161; 64448; 76942; 85025; 88300; 73560; 27447; C1713; C1776; J2250; J0171; J1100; J0690 ×2; J2405; J3010; J1885; J2795 ×2; J2704; J0735; J1170

== ENCOUNTER → 2022-07-04 | Outpatient (CLI) | payer OTHER ==
--- NOTE | 2022-07-04 09:46 | XR ---
EXAMINATION TYPE: XR chest 2V DATE OF EXAM: 07/04/2022 COMPARISON: NONE HISTORY: Shortness of breath TECHNIQUE: Frontal and lateral views of the chest are obtained. FINDINGS: Scattered senescent parenchymal changes noted. Hyperinflation compatible with COPD. No evidence for infiltrate. No evidence for atelectasis. Heart size is stable. Mediastinal structures are stable and grossly unremarkable. No evidence for hilar prominence. Degenerative changes dorsal spine. IMPRESSION: 1. No evidence for acute pulmonary disease.
== END | disposition home or self-care (01) ==
LOC: RADXRYALE 09:12
PROVIDERS: ATTEND Family Medicine
DX: R06.02 Shortness of breath (principal); U09.9 Post COVID-19 condition, unspecified; R05.2 Subacute cough
CPT/HCPCS: 71046

== ENCOUNTER → 2023-01-11 | Outpatient (CLI) | payer OTHER ==
--- NOTE | 2023-01-11 16:53 | XR ---
EXAMINATION TYPE: XR lumbosacral spine 5 views DATE OF EXAM: 01/11/2023 Comparison: None Clinical History: 62-year-old male [id number] LBP Findings: 5 lumbar type vertebral bodies. Hypertrophic facet arthropathy throughout. Somewhat short appearance to the pedicles in the mid and lower lumbar spine could reflect a component of underlying mild congen ital spinal canal narrowing. Mild multilevel degenerative disc disease and endplate spondylosis. Grad e 1 retrolisthesis L2-L3. Impression: 1. Hypertrophic facet arthropathy throughout. Trace grade 1 retrolisthesis L2-L3. 2. No vertebral compression collapse. 3. Mild multilevel degenerative disc disease. 4. Somewhat short appearance to the pedicles in the mid and lower lumbar spine on the lateral view co uld reflect a component of congenital spinal canal narrowing.
== END | disposition home or self-care (01) ==
LOC: RADXRYALE 15:01
PROVIDERS: ATTEND Family Medicine
DX: M47.816 Spondylosis without myelopathy or radiculopathy, lumbar region (principal); M51.36 Other intervertebral disc degeneration, lumbar region; M43.16 Spondylolisthesis, lumbar region
CPT/HCPCS: 72110

== ENCOUNTER → 2023-10-08 | Outpatient (CLI) | payer OTHER ==
[2023-10-08 10:15] VITALS: BP 165/103; PULSE 99; RESP 16; TEMP 98.5
--- NOTE | 2023-10-08 10:46 | P.PAINPG ---
PQRS Measure Charge Sheet Comment: HISTORY OF PRESENT ILLNESS: A 63 yr old male w at side as a referral from Dr Haines presents today w severe and chronic LBP x 1-2 yr secondary to DDD, spondylosis and facet arthropathy without myelopathy for evaluation. Pt states pain level is provoked at 9 /10 in intensity, constant, localized in the L lumbar spine, predominantly axial, throbbing in character w occasional shooting pain towards the L foot. Pain is provoked by standing for periods >20 min. Pain is alleviated by PT x 6 wks in Dec 2022, physician guided exercises/ stretches daily since Dec 2022, alternating heat & ice, medications (Ibu), repositioning and rest. Oswestry axial pain score at 24. PMH: OA, HTN, LAUREN PSH: Hernia Repair, L Total Knee Replacement, L Cataract Extraction, Facial Plastic Surgery from Baseball injury SH: Never smoker, Occasional ETOH use, No illicit drug use. Utility Aide. FH: Sis- [place] All: See list Meds: See list REVIEW OF ORGAN SYSTEMS: CONSTITUTIONAL: No fevers or chills. No recent weight loss. NEUROLOGICAL: + numbness and tingling along the distal extremities. No seizure disorders or headaches. MUSCULOSKELETAL: + pain PSYCHIATRIC: Denies current depression or suicidal thoughts. Physical Examinations : Constitutional : Cooperative , not in acute distress . Neurologic : Cranial nerve II to XII intact. No focal neurological deficits. Psychiatric : alert & oriented x 3. Matching mood & appropriate affect. Judgment & insight intact. Musculoskeletal : Cervical Spine Motor strength in the deltoid and biceps: Normal right side. Normal Left side Motor strength biceps and the wrist extensors: Normal right side . Normal left side Motor strength in the triceps muscle: Normal right side. Normal left side Deep tendon reflexes: Normal at the biceps. Normal at Brachioradialis. Normal at triceps Vertebral body tenderness to deep palpation over Cervical facet loading test: positive bilaterally Spurling test: positive bilaterally Neck distraction test: positive bilaterally Ivett sign: positive bilaterally Lumbar spine Motor strength lower extremities ,thigh and legs 5/5 Right side , 5/5 Left side Deep tendon reflexes : Normal Knee Jerk. Normal Ankle Jerk Vertebral body tenderness over Correa Test positive Lumbar facet Loading Test: positive Right / positive Left Range of motion of the lumbar spine Flexion 30 degrees, extension 10 degrees Straight Leg Raise test: Left/ Right positive at degree Alok test: positive right / positive left. Severe tenderness over the Sacroiliac joint on the Right / Left sides Gaenslen test: positive bilaterally Seated flexion test: positive bilaterally. Sacral spine : Severe tenderness over the Sacroiliac joint: right side / left side Range of motion: Flexion of the lumbar spine <60 degrees Range of motion: Extension of the lumbar spine <20 degrees Gaenslen's Test positive Alok test: positive right side / left side Thigh Thrust Test Sacral Thrust Test Imaging: X-ray lumbar spine from 01/11/23 reviewed Assessment/ Plan : Lumbar DDD Recommendation of MRI lumbar spine M51.36. RTC in 2 wks for a re evaluation. All questions answered. I have spent greater than 30 minutes on patient care today. Dr Rooney was available by phone for the evaluation of this patient. The time was used to review the medical records including relevant urine studies and Prescription history (MAPs), review of the available imaging, evaluation and examination of the patient, coordination of care with the medical staff and if applicable referring physicians, as well as creation of the medical record [facility] 7.5/325mg #15 NR. Use side effects, adverse reactions and safe storage discussed. Pt acknowledged understanding. - Pain Location Left Lower Back Non-Pharmacological Interventions: Heat, Ice, Inactivity, Position/Reposition Pharmacological Interventions: PRN Medication PQRS Narrative: Smoking Status Never smoker Home Medications: Ambulatory Orders Tamsulosin [Flomax] 0.4 mg PO DAILY 05/13/20 tadalafiL [Cialis] 20 mg PO DAILY PRN 05/13/20 Ibuprofen [Motrin] 800 mg PO TID 07/22/20 Aspirin 325 mg PO BID #60 tab 07/28/20 Sennosides [Senokot] 2 tab PO DAILY PRN #60 tablet 07/28/20 HYDROcodone/APAP 7.5-325MG [[place] 7.5-325] 1 tab PO Q4H PRN 3 Days #15 tab 10/08/23 Controlled Substance Measures - Controlled Substance Measures Is patient prescribed a controlled substance at discharge?: Yes When asked, does pt state using other controlled substances?: No If prescribed controlled substance>3 days was MAPS reviewed?: Prescribed <3 Days
== END ==
LOC: PNWHC3 09:09
PROVIDERS: ATTEND Specialist
DX: M51.36 Other intervertebral disc degeneration, lumbar region (principal); Z79.82 Long term (current) use of aspirin
CPT/HCPCS: 99211

== ENCOUNTER → 2023-10-09 | Outpatient (CLI) | payer OTHER ==
--- NOTE | 2023-10-09 11:44 | MR ---
EXAMINATION TYPE: MR lumbar spine wo con DATE OF EXAM: 10/09/2023 COMPARISON: NONE HISTORY: Left sided lower back pain with LLE radiculopathy. TECHNIQUE: T1 and T2 axial and sagittal images of the lumbar spine are submitted. FINDINGS: There is no abnormal signal seen within the visualized spinal cord or paraspinal soft tissu es. There is mild aneurysmal dilation of abdominal aorta measuring 3.1 cm. Atrophic SI joint arthropa thy greater on the right. At L1-2 there is no evidence of disc herniation, canal stenosis, or foraminal encroachment. At L2-3 there is no evidence of disc herniation, canal stenosis, or foraminal encroachment. At L3-4 there is no evidence of disc herniation, canal stenosis, or foraminal encroachment. At L4-5 there is disc desiccation. Broad-based central disc herniation with moderate thecal sac effac ement. Facet arthropathy and ligamentum flavum hypertrophy. Mild central stenosis. At L5-S1 there is disc desiccation with broad-based disc herniation. Hypertrophic changes and facets with moderate right and severe left foraminal encroachment. Mild central stenosis. Discogenic marrow changes. IMPRESSION: 1. Broad-based disc herniations L4-5 and L5-S1 with thecal sac compression and canal stenosis. Bilate ral foraminal encroachment as discussed above at these levels. Findings most marked at L5-S1 on the l eft. 2. There is mild aneurysmal dilation of the abdominal aorta measuring 3.1 cm.
== END | disposition home or self-care (01) ==
LOC: RADMRIMAIN 08:46
PROVIDERS: ATTEND Specialist
DX: M51.16 Intervertebral disc disorders with radiculopathy, lumbar region (principal); M51.27 Other intervertebral disc displacement, lumbosacral region; M48.061 Spinal stenosis, lumbar region without neurogenic claudication; I71.40 Abdominal aortic aneurysm, without rupture, unspecified
CPT/HCPCS: 72148

== ENCOUNTER → 2023-10-10 | Outpatient (CLI) | payer OTHER ==
[2023-10-10 12:52] VITALS: BP 162/91; PULSE 99; RESP 16; TEMP 98.9
--- NOTE | 2023-10-10 14:10 | P.PAINPG ---
PQRS Measure Charge Sheet Comment: HISTORY OF PRESENT ILLNESS: A 63 yr old male w at side presents today w severe and chronic LBP x 1-2 yr secondary to DDD, spondylosis and facet arthropathy without myelopathy for evaluation of MRI results. Pt states pain level is provoked at 6 /10 in intensity, constant, localized in the L lumbar spine, predominantly axial, throbbing in character w occasional shooting pain towards the L foot. Pain is provoked by standing for periods >20 min. Pain is alleviated by PT x 6 wks in Dec 2022, physician guided exercises/ stretches daily since Dec 2022, alternating heat & ice, medications, repositioning and rest. Oswestry axial pain score at 24. Interventional procedures include Medications include Adrian prn, Ibu REVIEW OF ORGAN SYSTEMS: CONSTITUTIONAL: No fevers or chills. No recent weight loss. NEUROLOGICAL: + numbness and tingling along the distal extremities. No seizure disorders or headaches. MUSCULOSKELETAL: + pain PSYCHIATRIC: Denies current depression or suicidal thoughts. Physical Examinations : Constitutional : Cooperative , not in acute distress . Neurologic : Cranial nerve II to XII intact. No focal neurological deficits. Psychiatric : alert & oriented x 3. Matching mood & appropriate affect. Judgment & insight intact. Musculoskeletal : Cervical Spine Motor strength in the deltoid and bicep s: Normal right side. Normal Left side Motor strength biceps and the wrist extensors: Normal right side . Normal left side Motor strength in the triceps muscle: Normal right side. Normal left side Deep tendon reflexes: Normal at the biceps. Normal at Brachioradialis. Normal at triceps Vertebral body tenderness to deep palpation over Cervical facet loading test: positive bilaterally Spurling test: positive bilaterally Neck distraction test: positive bilaterally Ivett sign: positive bilaterally Lumbar spine Motor strength lower extremities ,thigh and legs 5/5 Right side , 5/5 Left side Deep tendon reflexes : Normal Knee Jerk. Normal Ankle Jerk Vertebral body tenderness over L5 Correa Test positive over L L5-S1 Lumbar facet Loading Test: positive Right / positive Left Range of motion of the lumbar spine Flexion 30 degrees, extension 10 degrees Straight Leg Raise test: Left/ Right positive at degree Alok test: positive right / positive left. Severe tenderness over the Sacroiliac joint on the Right / Left sides Gaenslen test: positive bilaterally Seated flexion test: positive amari aterally. Sacral spine : Severe tenderness over the Sacroiliac joint: right side / left side Range of motion: Flexion of the lumbar spine <60 degrees Range of motion: Extension of the lumbar spine <20 degrees Gaenslen's Test positive Alok test: positive right side / left side Thigh Thrust Test Sacral Thrust Test Imaging: X-ray lumbar spine from 01/11/23 reviewed MRI noncontrast of the lumbar spine from 10/09/23 reviewed Assessment/ Plan : Lumbar DDD Recommendation of CHERYL L paramedian L5-S1 #1. May need a series of injections for optimal pain relief. Risks, benefit s of procedure discussed and pt verbalized understanding. Protocol for discontinuation/ continuation of medications rhiannon procedure discussed. All questions answered. I have spent greater than 30 minutes on patient care today. Dr Rooney was available by phone for the evaluation of this patient. The time was used to review the medical records including relevant urine studies and Prescription history (MAPs), review of the available imaging, evaluation and examination of the patient, coordination of care with the medical staff and if applicable referring physicians, as well as creation of the medical record [place] 7.5/325mg #15 NR. Use side effects, adverse reactions and safe storage discussed. Pt acknowledged understanding. PQRS Narrative: Smoking Status Never smoker Hx Alcohol Use (MH) No Home Medications: Ambulatory Orders Tamsulosin [Flomax] 0.4 mg PO DAILY 05/13/20 tadalafiL [Cialis] 20 mg PO DAILY PRN 05/13/20 Ibuprofen [Motrin] 800 mg PO TID 07/22/20 Aspirin 325 mg PO BID #60 tab 07/28/20 Sennosides [Senokot] 2 tab PO DAILY PRN #60 tablet 07/28/20 HYDROcodone/APAP 7.5-325MG [[place] 7.5-325] 1 tab PO Q4H PRN 3 Days #15 tab 10/08/23 Controlled Substance Measures - Controlled Substance Measures Is patient prescribed a controlled substance at discharge?: No
== END ==
LOC: PNWHC3 12:11
PROVIDERS: ATTEND Specialist
DX: M51.36 Other intervertebral disc degeneration, lumbar region (principal); Z79.82 Long term (current) use of aspirin
CPT/HCPCS: 99211

== ENCOUNTER 2023-10-30 11:33 | Day surgery (SDC) | payer OTHER ==
[2023-10-30 12:15] VITALS: TEMP 97.2
[2023-10-30] MEDS ORDERED: IOPAMIDOL M200 10 ML VIAL ONE (12:21)
[2023-10-30] MEDS ORDERED: methylPREDNISolone ACETATE 80 MG/ML 1 ML VIAL ONE (12:21)
--- NOTE | 2023-10-30 12:27 | P.PCN ---
Date of Procedure: 10/30/23 Procedure(s) Performed: PREOPERATIVE DIAGNOSIS: 1- Lumbar Degenerative Disc Diseases 2-Lumbar spondylosis with Facet arthropathy without myelopathy. 3-lumbar spinal stenosis POSTOPERATIVE DIAGNOSIS: 1-lumbar degenerative disc disease. 2-lumbar spondylosis with facet arthropathy without myelopathy. 3-lumbar spinal stenosis. PROCEDURE 1. Lumbar epidural steroid injection under fluoroscopic guidance at the L5-S1 level. (Fluoroscopy imaging was available in radiology department) 2. Lumbar epidurogram. ANESTHESIA: Lidocaine 1% 3 and then only. EBL: Minimal PROCEDURE INDICATION: The patient with low back pain and radiculitis symptoms unresponsive to conservative treatment. Fluoroscopy was used to optimize visualization of the needle placement and to maximize safety. PROCEDURE DESCRIPTION / TECHNIQUE: The patient was seen and identified in the preoperative area. Risks, benefits, complications including but not limited to infections ,bleeding ,allergic reaction to the medications ,nerve damage and not complete pain releife , and alternatives were discussed with the patient. The patient agreed to proceed with the procedure and signed the consent, and vital signs were stable. Patient was taken to the OR and time out was completed. The patient was placed in the prone position on procedure table and a pillow was placed under the abdomen to reduce lumbar lordosis. The lumbosacral area was prepped and draped in the usual sterile fashion.ere closely monitored during the procedure. Vital signs was monitered during the entire procedure. Using anterior-posterior fluoroscopy, the L5-S1 interlaminar space was identified and the skin over this site was marked and then infiltrated with 1% lidocaine subcutaneously. Subsequently, a 20-gauge Tuohy epidural needle was inserted and advanced toward the epidural space using the ``Loss of resistance technique and guided by AP and lateral fluoroscopy. The correct needle position in the epidural space was verified with the injection of 2 mL of the water soluble contrast dye Isovue 200 contrast and observing an excellent epidurogram with the epidural spread of the dye, after negative aspiration for blood and CSF and in the absence of paresthesias. Again after negative aspiration, a 6 ml mixture containing 80 mg of Depo-medrol ( Preservetive Free ), and 2 ml of preservative free Normal Saline, and 2 ml of preservative free lidocaine 1% solution was injected and a washout of epidurogram was seen. Needle was withdrawn intact, skin was cleansed, and bandages were applied. COMPLICATIONS: None DISPOSITION / PLANS: The patient was placed in a supine position and transferred to the recovery area in a stable condition for observation. There was no evidence of lower extremity motor or sensory deficit after the procedure. Patient was discharged from the recovery room after meeting discharge criteria. Home discharge instructions were given to the patient by the staff. The patient was reexamined prior to discharge. The patient will schedule a follow up in the clinic in 2-4 weeks.
[2023-10-30] MEDS ORDERED: LACTATED RINGERS 1,000 ML IV SCH (13:00)
[2023-10-30 13:04] VITALS: BP 154/79; PULSE 68; RESP 18
--- NOTE | 2023-10-30 15:21 | FL ---
Fluoroscopy INDICATION: Pain FINDINGS: Fluoroscopy time: 1.3 seconds. Total dose area product (DAP) in uGy*m?, mGy*cm? (or similar): 0.34468 Images obtained: 2. IMPRESSION: 1. Documentation of fluoroscopy.
== END 2023-10-30 13:00 | disposition home or self-care (01) ==
LOC: ORPAIN 11:33
PROVIDERS: ATTEND Specialist
DX: M51.16 Intervertebral disc disorders with radiculopathy, lumbar region (principal); M47.26 Other spondylosis with radiculopathy, lumbar region; M48.061 Spinal stenosis, lumbar region without neurogenic claudication; Z79.1 Long term (current) use of non-steroidal anti-inflammatories (NSAID)
CPT/HCPCS: 62323; J1040; Q9966